=== PATIENT | male | born 1955 | race Two or more races ===

== ENCOUNTER 2022-06-28 08:18 | Outpatient (CLI) | payer OTHER | END 2022-06-28 08:28 | disposition home or self-care (01) | LOC: RAD 08:18 | PROVIDERS: ATTEND Orthopaedic Surgery | DX: M25.551 Pain in right hip (principal) ==

== ENCOUNTER 2024-01-02 07:29 | Outpatient (CLI) | payer OTHER | END 2024-01-02 07:38 | disposition home or self-care (01) | LOC: SONOGRAMA 07:29 | PROVIDERS: ATTEND Internal Medicine Gastroenterology | DX: R10.9 Unspecified abdominal pain (principal) ==